=== PATIENT | male | born 1955 | race African-American/Black ===

== ENCOUNTER 2017-10-31 08:21 | Emergency (ER) | payer MEDICAID ==
[~2017-10-31] VITALS: Ht 182.9 cm; Wt 81.6 kg
[~2017-10-31 08:21] MED LIST: ANUCORT-HC25 MG RECTAL; ATIVAN1 MG ORAL; METAMUCIL1 PK1 PO; NKM; PRILOSEC20 MG ORAL; [UNRECOGNIZED DRUG - REMARK]
[2017-10-31] MEDS ORDERED: UNOBMED (08:30)
[2017-10-31 08:48] VITALS: BP 158/98
--- NOTE | 2017-10-31 09:04 | Emergency Room Report ---
History of Present Illness General Chief Complaint: Pain Source: Patient, Medical Record Present Illness HPI Patient fell at a [place] restaurant after slipping on green[place] fries. He hit his chin and also caught himself with his left arm and fell onto his left side. There was no loss of consciousness. He's had continued pain that's been severe. Pain is mainly in his left arm and left leg. He is requesting that we perform a CAT scan at this time. Pain rated 9/10, aching and worse when touched. No bruising noted. No numbness. No headache. Patient's also had some left-sided chest pain. After the fall his heart rate was quite rapid. He has not been compliant with his blood pressure medicine and started taking it again. No NVD, dysuria, rashes, cough, sore throat, neck pain. Allergies: Coded Allergies: No Known Allergies (Unverified , 08/04/12) Patient History Past Medical History: see triage record Social History: Reports: smoking, alcohol use Social History Narrative not working Reviewed Nursing Documentation: PMH: Agreed; PSxH: Agreed Nursing Documentation-PMH Past Medical History: No History, Except For Hx Hypertension: Yes Hx Asthma: Yes Hx Gastrointestinal Problems: Yes - GERD Review of Systems All Other Systems: negative except mentioned in HPI Physical Exam Vital Signs Date Time Temp Pulse Resp B/P (MAP) Pulse Ox O2 Delivery O2 Flow Rate FiO2 10/31/17 08:26 97.9 70 18 158/98 96 Room Air 97.9 Sp02 EP Interpretation: reviewed, normal General Appearance: well appearing, no apparent distress Head: normocephalic, atraumatic Eyes: bilateral eye normal inspection, bilateral eye PERRL, bilateral eye EOMI ENT: hearing grossly normal, normal voice, moist mucus membranes Neck: full range of motion, supple, no bony tend Respiratory: chest non-tender, lungs clear, normal breath sounds, no respiratory distress, speaking full sentences Cardiovascular #1: regular rate, rhythm Cardiovascular #2: 2+ radial (L) Gastrointestinal: normal inspection, non tender Genitourinary: no CVA tenderness Musculoskeletal: back normal, digits/nails normal, gait/station normal, normal range of motion, no calf tenderness, pelvis stable, other - TTP, L elbow, L leg - diffuse. ROM full of arm, shoulder and leg, sits, stands and bends without difficulty Neurologic: alert, oriented x3, motor strength/tone normal, DTRs symmetric, sensory intact, cerebellar normal, normal gait, speech normal Psychiatric: mood/affect normal Skin: no rash Medical Decision Making Diagnostic Impression: Primary Impression: Fall Qualified Codes: W19.XXXA - Unspecified fall, initial encounter Additional Impression: Multiple contusions ER Course Patient presents with left-sided pain after fall. Differential includes contusion, strain, sprain. He also is complaining about some chest pain and had some were episode of rapid heartbeat. An EKG will be obtained. Patient will be treated for pain. No x-rays or imaging is indicated based on the physical exam. EKG without injury. Patient improved. Still wants CT. Discussed not indicated based on exam. Need to follow up with PMD. Patient stable for outpatient observation and treatment. EKG Diagnostic Results Rate: normal Rhythm: NSR ST Segments: no acute changes Rhythm Strip Diag. Results EP Interpretation: yes Rhythm: NSR, no PVC's, no ectopy, other - from EKG Last Vital Signs Date Time Temp Pulse Resp B/P (MAP) Pulse Ox O2 Delivery O2 Flow Rate FiO2 10/31/17 09:46 97.9 84 18 158/98 96 Room Air 208.2 Status: improved Disposition: HOME, SELF-CARE Condition: Improved Scripts Methocarbamol* (ROBAXIN*) 500 Mg Tablet 500 MG PO TID PRN for muscle spasm, #10 TAB 0 Refills Prov: Jaime Ware M.D. 10/31/17 Tramadol Hcl* (ULTRAM*) 50 Mg Tablet 50 MG ORAL Q6H PRN for For Pain, #10 TAB 0 Refills Prov: Jaime Ware M.D. 10/31/17 Ibuprofen* (MOTRIN*) 600 Mg Tablet 600 MG ORAL Q6H PRN for For Pain, #20 TAB Prov: Jaime Ware M.D. 10/31/17 Jaime Ware M.D. Oct 31, 2017 09:04
[2017-10-31] MEDS ORDERED: TRAMADOL HCL50 MG ORAL (09:36)
[2017-10-31] MEDS ORDERED: IBUPROFEN600 MG ORAL (09:36)
[2017-10-31] MEDS ORDERED: ROBAXIN500 MG PO (09:36)
[2017-10-31 09:46] VITALS: BP 158/98
--- NOTE | 2017-10-31 17:40 | Cardiology Report ---
APPROVED REPORT EKG Measurement Heart [id number] Normal sinus rhythm Septal infarct, age undetermined Abnormal ECG
== END 2017-10-31 09:47 | disposition home or self-care (01) ==
LOC: EMR 09:39
DX: S50.02XA Contusion of left elbow, initial encounter (principal); S80.12XA Contusion of left lower leg, initial encounter; W01.0XXA Fall on same level from slipping, tripping and stumbling without subsequent striking against object, initial encounter; Y92.511 Restaurant or cafe as the place of occurrence of the external cause; I10 Essential (primary) hypertension; J45.909 Unspecified asthma, uncomplicated; K21.9 Gastro-esophageal reflux disease without esophagitis
CPT/HCPCS: 93005; 99282

== ENCOUNTER 2018-08-23 14:45 | Emergency (ER) | payer BC, MEDICAID ==
[~2018-08-23] VITALS: Ht 182.9 cm; Wt 73.5 kg
[~2018-08-23 14:45] MED LIST changes: +IBUPROFEN600 MG ORAL; +ROBAXIN500 MG PO; +TRAMADOL HCL50 MG ORAL; +UNOBMED
--- NOTE | 2018-08-23 14:58 | NUR ---
ED Nurse Note: Pt came into the ER to get an xray. Pt denies having pain. According to pt, he has been coughing "white stuff" for a couple days. Pt is A + O x4. Ambulatory. Skin warm to to touch.
[2018-08-23 15:04] VITALS: BP 162/103
--- NOTE | 2018-08-23 15:28 | NUR ---
ED Nurse Note: Xray has been completed.
[2018-08-23] MEDS ORDERED: Lidocaine 2% Visc 15ml soln ORAL ONE (15:30)
[2018-08-23] MEDS ORDERED: Isovue-300 100ml vial INJ PRN (15:30)
[2018-08-23 15:39] LABS: APPEARANCE,URINE CLEAR; BILIRUBIN, URINE NEGATIVE (NEGATIVE); COLOR,URINE PALE YELLOW; GLUCOSE, URINE (UA) NEGATIVE (NEGATIVE); KETONES,URINE NEGATIVE (NEGATIVE); LEUKOCYTE ESTERASE ,URINE 1+ (NEGATIVE); NITRITE,URINE NEGATIVE (NEGATIVE); PH,URINE 6 (4.5-8.0); PROTEIN,URINE NEGATIVE (NEGATIVE); UROBILINOGEN,URINE NORMAL MG/DL (0.0-1.0)
[2018-08-23 15:40] LABS: BASOPHILS % (AUTO) 1.6 % (0.0-2.0); EOSINOPHILS % (AUTO) 2.2 % (0.0-3.0); HEMATOCRIT 43.6 % (42.0-52.0); HEMOGLOBIN 14.7 G/DL (14.2-18.0); MEAN CORPUSCULAR VOLUME 94 FL (80-99); MONOCYTES % (AUTO) 9.3 % (1.0-10.0); NEUTROPHILS % (AUTO) 58.9 % (45.0-75.0); PLATELET COUNT 306 K/UL (150-450); RED BLOOD COUNT 4.66 M/UL (4.70-6.10); RED CELL DISTRIBUTION WIDTH 11.9 % (11.6-14.8); WHITE BLOOD COUNT 9.1 K/UL (4.8-10.8)
[2018-08-23 15:43] LABS: ANION GAP 9 mmol/L (5-15); BLOOD UREA NITROGEN 14 mg/dL (7-18); CALCIUM 9.8 MG/DL (8.5-10.1); CARBON DIOXIDE 28 MMOL/L (21-32); CHLORIDE 102 MMOL/L (98-107); CREATININE 1.3 MG/DL (0.55-1.30); POTASSIUM 4.8 MMOL/L (3.5-5.1); SODIUM 139 MMOL/L (136-145)
[2018-08-23 15:48] LABS: ALANINE AMINOTRANSFERASE 22 U/L (12-78); ALBUMIN 3.9 G/DL (3.4-5.0); ALBUMIN/GLOBULIN RATIO 0.9 (1.0-2.7); ALKALINE PHOSPHATASE 95 U/L (46-116); ASPARTATE AMINO TRANSFERASE 16 U/L (15-37); BILIRUBIN,TOTAL 0.4 MG/DL (0.2-1.0)
--- NOTE | 2018-08-23 16:09 | NUR ---
ED Nurse Note: Notified radiology of CT order.
--- NOTE | 2018-08-23 16:20 | NUR ---
ED Nurse Note: Pt went down to CT.
--- NOTE | 2018-08-23 16:33 | Diagnostic Imaging Report ---
Indication: Cough Technique: One view of the chest Comparison: 08/31/2013 Findings: Lungs and pleural spaces are clear. Heart size is normal. No significant change Impression: No acute process
--- NOTE | 2018-08-23 16:33 | NUR ---
ED Nurse Note: Pt back from CT.
--- NOTE | 2018-08-23 16:50 | Emergency Room Report ---
History of Present Illness General Chief Complaint: General Complaint Source: Patient, Medical Record Present Illness HPI The patient states he is not feeling well. He states that he has pain in his upper abdomen mostly and also in the rest of his abdomen. He states he has a history of acid reflux. He states he gets severe episodes of this about once a year. He states that he is also had nausea and was bringing up white fluid. He also has had subjective fever and chills. He denies diarrhea. He states he has normal bowel movements daily. He denies dysuria or hematuria. He denies headache or neck pain. He denies blurry vision. He has other complaints. Allergies: Coded Allergies: No Known Allergies (Unverified , 08/04/12) Patient History Past Medical History: see triage record, HTN, asthma, GERD Social History: Reports: smoking, alcohol use, drug use - THC Reviewed Nursing Documentation: PMH: Agreed; PSxH: Agreed Nursing Documentation-PMH Past Medical History: No History, Except For Hx Hypertension: Yes Hx Asthma: Yes Hx Gastrointestinal Problems: Yes - GERD Review of Systems All Other Systems: negative except mentioned in HPI Physical Exam Vital Signs Date Time Temp Pulse Resp B/P (MAP) Pulse Ox O2 Delivery O2 Flow Rate FiO2 08/23/18 14:47 99.3 74 19 171/123 97 Room Air 08/23/18 15:04 100 Sp02 EP Interpretation: reviewed, normal General Appearance: no apparent distress, alert, GCS 15, non-toxic Head: normocephalic, atraumatic Eyes: bilateral eye normal inspection, bilateral eye PERRL ENT: hearing grossly normal, normal pharynx, no angioedema, normal voice Neck: full range of motion, supple/symm/no masses Respiratory: chest non-tender, lungs clear, normal breath sounds, no respiratory distress, no retraction, no accessory muscle use, speaking full sentences Cardiovascular #1: regular rate, rhythm, no edema Gastrointestinal: normal bowel sounds, soft, non-distended, no guarding, no rebound, tenderness - TTP in the epigastrium and RLQ Rectal: deferred Musculoskeletal: back normal, gait/station normal, normal range of motion, non- tender Neurologic: alert, oriented x3, responsive, motor strength/tone normal, sensory intact, speech normal Psychiatric: judgement/insight normal, memory normal, mood/affect normal, no suicidal/homicidal ideation Skin: normal color, no rash, warm/dry, well hydrated Medical Decision Making Diagnostic Impression: Primary Impression: Gastritis ER Course This patient has a clinical presentation consistent with gastritis. The location of the pain and history and physical examination is consistent with this. I considered other concerning differentials, to include appendicitis, cholelithiasis, cholecystitis, pancreatitis, perforated viscus, aortic aneurysm , and pyelonephritis to name a few. However, laboratory workup in combination with medical and surgical history, negative CT abd/pelvis and physical exam makes these unlikely at this time. I did educate the patient on close return precautions and followup instructions. Laboratory Tests Test 08/23/18 15:15 White Blood Count 9.1 K/UL (4.8-10.8) Red Blood Count 4.66 M/UL (4.70-6.10) L Hemoglobin 14.7 G/DL (14.2-18.0) Hematocrit 43.6 % (42.0-52.0) Mean Corpuscular Volume 94 FL (80-99) Mean Corpuscular Hemoglobin 31.5 PG (27.0-31.0) H Mean Corpuscular Hemoglobin Concent 33.6 G/DL (32.0-36.0) Red Cell Distribution Width 11.9 % (11.6-14.8) Platelet Count 306 K/UL (150-450) Mean Platelet Volume 5.8 FL (6.5-10.1) L Neutrophils (%) (Auto) 58.9 % (45.0-75.0) Lymphocytes (%) (Auto) 28.0 % (20.0-45.0) Monocytes (%) (Auto) 9.3 % (1.0-10.0) Eosinophils (%) (Auto) 2.2 % (0.0-3.0) Basophils (%) (Auto) 1.6 % (0.0-2.0) Urine Color Pale yellow Urine Appearance Clear Urine pH 6 (4.5-8.0) Urine Specific [place] 1.015 (1.005-1.035) Urine Protein Negative (NEGATIVE) Urine Glucose (UA) Negative (NEGATIVE) Urine Ketones Negative (NEGATIVE) Urine Blood 3+ (NEGATIVE) H Urine Nitrite Negative (NEGATIVE) Urine Bilirubin Negative (NEGATIVE) Urine Urobilinogen Normal MG/DL (0.0-1.0) Urine Leukocyte Esterase 1+ (NEGATIVE) H Urine RBC 2-4 /HPF (0 - 0) H Urine WBC 2-4 /HPF (0 - 0) Urine Squamous Epithelial Cells None /LPF (NONE/OCC) Urine Bacteria Few /HPF (NONE) Sodium Level 139 MMOL/L (136-145) Potassium Level 4.8 MMOL/L (3.5-5.1) Chloride Level 102 MMOL/L (98-107) Carbon Dioxide Level 28 MMOL/L (21-32) Anion Gap 9 mmol/L (5-15) Blood Urea Nitrogen 14 mg/dL (7-18) Creatinine 1.3 MG/DL (0.55-1.30) Estimate Glomerular Filtration Rate > 60 mL/min (>60) Glucose Level 95 MG/DL (74-106) Calcium Level 9.8 MG/DL (8.5-10.1) Total Bilirubin 0.4 MG/DL (0.2-1.0) Aspartate Amino Transferase (AST) 16 U/L (15-37) Alanine Aminotransferase (ALT) 22 U/L (12-78) Alkaline Phosphatase 95 U/L (46-116) Troponin I 0.000 ng/mL (0.000-0.056) Total Protein 8.4 G/DL (6.4-8.2) H Albumin 3.9 G/DL (3.4-5.0) Globulin 4.5 g/dL Albumin/Globulin Ratio 0.9 (1.0-2.7) L Urine Opiates Screen Negative (NEGATIVE) Urine Barbiturates Screen Negative (NEGATIVE) Phencyclidine (PCP) Screen Negative (NEGATIVE) Urine Amphetamines Screen Negative (NEGATIVE) Urine Benzodiazepines Screen Negative (NEGATIVE) Urine Cocaine Screen Negative (NEGATIVE) Urine Marijuana (THC) Screen Positive (NEGATIVE) H Microbiology Date/Time Source Procedure Growth Status 08/23/18 15:15 Nasal Nares - Final Complete 08/23/18 15:15 Nasal Nares - Final Complete EKG Diagnostic Results Rate: normal Rhythm: NSR ST Segments: no acute changes Rhythm Strip Diag. Results EP Interpretation: yes Rate: 60's Rhythm: NSR, no PVC's, no ectopy Chest X-Ray Diagnostic Results Chest X-Ray Diagnostic Results : Chest X-Ray Ordered: Yes # of Views/Limited/Complete: 1 View Indication: Other EP Interpretation: Yes Interpretation: no consolidation, no effusion, no pneumothorax, no acute cardiopulmonary disease, other - Hyperinflated c/w COPD Impression: No acute disease Electronically Signed by: Jessy Villagran DO CT/MRI/US Diagnostic Results CT/MRI/US Diagnostic Results : Imaging Test Ordered: CT abd/pelvis Impression No acute findings. See official report electronic medical record. Last Vital Signs Date Time Temp Pulse Resp B/P (MAP) Pulse Ox O2 Delivery O2 Flow Rate FiO2 08/23/18 15:04 66 24 Room Air 100 08/23/18 15:04 99.2 162/103 100 Status: improved Disposition: HOME, SELF-CARE Condition: Improved Referrals: NON PHYSICIAN (PCP) Jessy Villagran DO Aug 23, 2018 16:50
[2018-08-23 17:09] VITALS: BP 193/108
--- NOTE | 2018-08-23 17:13 | Diagnostic Imaging Report ---
Clinical Indication: Abdominal pain Technique: No oral contrast utilized, per emergency room physician request IV administration nonionic contrast. Venous phase spiral acquisition obtained through the abdomen and pelvis. Multiplanar reconstructions were generated. Total dose length product 728.19 mGycm. CTDIvol(s) 13.45 mGy. Dose reduction achieved using automated exposure control Comparison: 03/01/2005 Findings: Lack of enteric contrast limits assessment of the GI tract. The appendix is normal. A single mildly dilated small bowel loop is seen in left upper quadrant. Other bowel loops are mildly prominent in caliber but not frankly dilated, several fluid-filled. No evidence of diverticulosis or diverticulitis. No free or loculated intraperitoneal gas or fluid. The distal esophagus, stomach, duodenum are unremarkable. The liver, gallbladder, bile ducts, pancreas, spleen, adrenals are all unremarkable. The left kidney demonstrates an interpolar region cyst. Both kidneys demonstrate subcentimeter low-attenuation lesions which are too small to characterize. No renal or ureteral calculi, hydronephrosis, or hydroureter demonstrated. No retroperitoneal or mesenteric mass or adenopathy. No pelvic mass or adenopathy. The included lung bases demonstrate a very faint 3 mm nodule in the left lower lobe which is also evident on the prior study. The bones demonstrate a probable bone island within the right iliac wing. Impression: Mildly prominent fluid-filled small bowel loops, nonspecific, could be baseline for this patient or could indicate mild enteritis changes No acute process otherwise Left renal cyst. Subcentimeter bilateral low-attenuation renal lesions, too small to characterize, most likely small cortical cysts. No further follow-up necessary 3 mm left lower lobe lung nodule, unchanged since 2004 and therefore presumed benign. No further follow-up necessary Probable right iliac wing bone island incidentally noted The CT scanner at [facility] is accredited by the [employer] and the scans are performed using protocols designed to limit radiation exposure to as low as reasonably achievable to attain images of sufficient resolution adequate for diagnostic evaluation.
[2018-08-23] MEDS ORDERED: [UNRECOGNIZED DRUG - REMARK] (17:15)
[2018-08-23] MEDS ORDERED: MAALOX ADVANCE770 ML PO (17:37)
[2018-08-23] MEDS ORDERED: OMEPRAZOLE MAGN20 MG PO (17:37)
[2018-08-23 18:01] VITALS: BP 181/105
--- NOTE | 2018-08-23 18:02 | NUR ---
ER DISCHARGE NOTE: Patient is cleared to be discharged per ERMD, pt is aox4, on room air, with stable vital signs. pt was given dc and prescription instructions, pt was able to verbalize understanding, pt id band and iv site removed without complications. pt is able to ambulate with steady gait. pt took all belongings. Pt offered sandwich and juice. Pt is wearing weather appropriate clothing. Pt denies placement and refuses to disclose where pt will be going.
--- NOTE | 2018-08-26 15:42 | Cardiology Report ---
APPROVED REPORT EKG Measurement Heart [id number] Normal sinus rhythm Normal ECG
== END 2018-08-23 18:02 | disposition home or self-care (01) ==
LOC: EMR 15:31
DX: K29.70 Gastritis, unspecified, without bleeding (principal); I10 Essential (primary) hypertension; K21.9 Gastro-esophageal reflux disease without esophagitis; F17.200 Nicotine dependence, unspecified, uncomplicated; F12.90 Cannabis use, unspecified, uncomplicated; J44.9 Chronic obstructive pulmonary disease, unspecified; N20.0 Calculus of kidney; R91.1 Solitary pulmonary nodule
CPT/HCPCS: 36415; 71045; 74177; 80053; 80307; 81003; 84484; 85025; 86710; 87040; 93005; 96374; 99284; Q9967; S0028

== ENCOUNTER 2019-04-24 16:01 | Emergency (ER) | payer MEDICAID ==
[~2019-04-24] VITALS: Ht 185.4 cm; Wt 90.7 kg
[~2019-04-24 16:01] MED LIST changes: +MAALOX ADVANCE770 ML PO; +OMEPRAZOLE MAGN20 MG PO; +[UNRECOGNIZED DRUG - REMARK]
[2019-04-24 16:25] VITALS: BP 165/99
--- NOTE | 2019-04-24 16:25 | NUR ---
ED Nurse Note: Patient arrived from home complaining of abdominal pain that has been worse recently. He states he has had it for 4 years. He feels burning radiating from the mid lower abdomen going up to his throat. Pain is 6-8/10. Aggravated by spicy foods and alcohol. He states he regularly eat spicy food and drinks beer 3-4 x per week. AxO x 4 , skin intact. Bed in lowest position.
[2019-04-24] MEDS ORDERED: Thiamine 100mg tab ORAL ONE (16:30)
[2019-04-24] MEDS ORDERED: Mylanta II UD 30ml ORAL ONE (16:45)
[2019-04-24] MEDS ORDERED: Dicyclomine HCl 10mg/5ml oral soln ORAL ONE (16:45)
[2019-04-24] MEDS ORDERED: Lidocaine 2% Visc 15ml soln ORAL ONE (16:45)
[2019-04-24] MEDS ORDERED: FAMOTIDINE20 MG ORAL (16:48)
--- NOTE | 2019-04-24 16:48 | Emergency Room Report ---
History of Present Illness General Chief Complaint: Abdominal Pain Source: Patient Present Illness HPI 63-year-old male history of alcohol use daily, history of 4 years of burning sensation throughout his entire body, no chest pain no shortness of breath, no aggravating factors severity is mild, patient states over the past week he has a diffuse burning sensation throughout his body, he states he came to the ED several months ago and received a purple drink which caused it to potentially resolve, patient is requesting a purple drink, patient denies any nausea vomiting abdominal pain dysuria, diarrhea, he states his body has warm sensations throughout. Allergies: Coded Allergies: No Known Allergies (Unverified , 08/04/12) Patient History Past Medical History: see triage record Social History: Reports: smoking, alcohol use Reviewed Nursing Documentation: PMH: Agreed; PSxH: Agreed Nursing Documentation-PMH Hx Hypertension: Yes Hx Asthma: Yes Hx Gastrointestinal Problems: Yes - GERD Review of Systems All Other Systems: negative except mentioned in HPI Physical Exam Vital Signs Date Time Temp Pulse Resp B/P (MAP) Pulse Ox O2 Delivery O2 Flow Rate FiO2 04/24/19 16:14 98.8 64 19 174/105 (128) 97 Room Air Sp02 EP Interpretation: reviewed, normal General Appearance: well appearing, no apparent distress, alert, other - Patient found to be sleeping comfortably in bed Head: normocephalic, atraumatic Eyes: bilateral eye PERRL, bilateral eye EOMI ENT: uvula midline, moist mucus membranes Neck: supple, thyroid normal, supple/symm/no masses Respiratory: lungs clear, no respiratory distress, no retraction, no accessory muscle use Cardiovascular #1: normal peripheral pulses, regular rate, rhythm, no edema, no gallop, no murmur Gastrointestinal: non tender, soft, no guarding, no rebound Musculoskeletal: normal inspection Neurologic: alert, oriented x3 Psychiatric: mood/affect normal Skin: no rash, warm/dry Medical Decision Making Diagnostic Impression: Primary Impression: Complaint of paresthesia Additional Impression: Gastritis Qualified Codes: K29.50 - Unspecified chronic gastritis without bleeding ER Course 63-year-old male presents with vague paresthesias, differential diagnosis includes malnourishment, vitamin deficiency, gastritis On chart review patient received famotidine, Mylanta, and viscous lidocaine which solved all his problems, currently denying any chest pain low suspicion for ACS, low suspicion for intra-abdominal pathology he states his entire body has a fiery sensation which has been ongoing for 4 years Patient given GI cocktail with resolution of these fiery sensations, patient has been found sleeping comfortably in the bed without any complaints Low suspicion for emergent pathology at this time disposition home with return precautions, will provide patient with famotidine at home Last Vital Signs Date Time Temp Pulse Resp B/P (MAP) Pulse Ox O2 Delivery O2 Flow Rate FiO2 04/24/19 16:14 98.8 64 19 174/105 (128) 97 Room Air Disposition: HOME, SELF-CARE Condition: Stable Scripts Famotidine* (Pepcid 20mg tablet*) 20 Mg Tablet 20 MG ORAL TWICE A DAY, #60 TAB 0 Refills Prov: Mohsen Davila MD 04/24/19 Referrals: [facility] Patient Instructions: Gastritis, Adult, Neuropathic Pain, Pain Without a Known Cause Additional Instructions: The patient was provided with discharge instructions, notified to follow-up with a primary care doctor and or specialist in the next 24-48 hours, and to return to the ED if they have worsening of their symptoms. Please note that this report is being documented using DRAGON technology. This can lead to erroneous entry secondary to incorrect interpretation by the dictating instrument. Mohsen Davila MD Apr 24, 2019 16:48
[2019-04-24 16:59] VITALS: BP 161/94
--- NOTE | 2019-04-24 16:59 | NUR ---
ER DISCHARGE NOTE: Patient is cleared to be discharged per ERMD, pt is aox4, on room air, with stable vital signs. pt was given dc and prescription instructions, pt was able to verbalize understanding, ID band removed. Patient states that he no longer feels burning pain. pt is able to ambulate with steady gait. pt took all belongings.
== END 2019-04-24 16:59 | disposition home or self-care (01) ==
LOC: EMR 16:40
DX: R20.2 Paresthesia of skin (principal); K29.50 Unspecified chronic gastritis without bleeding; K21.9 Gastro-esophageal reflux disease without esophagitis; F17.200 Nicotine dependence, unspecified, uncomplicated; I10 Essential (primary) hypertension
CPT/HCPCS: 99283